=== PATIENT | female | born 1930 | race Caucasian/White ===

== ENCOUNTER 2018-07-13 19:01 | Inpatient (IN) | payer MEDICARE, BC ==
[~2018-07-13] VITALS: Ht 152.4 cm; Wt 55.5 kg
[2018-07-13 21:05] VITALS: BP 156/82; PULSE 75; TEMP 98.7
[2018-07-13] MEDS ORDERED: NORVASC 5MG5 MG/TAB PO ×2 (22:27→22:32)
[2018-07-13] MEDS ORDERED: COZAAR100 MG PO (22:34)
[2018-07-13] MEDS ORDERED: BYSTOLIC10 MG PO (22:37)
[2018-07-13] MEDS ORDERED: JANUVIA50 MG PO (22:38)
[2018-07-13] MEDS ORDERED: HCTZ 25MG TAB25 MG PO (22:39)
[2018-07-13 23:30] LABS: HEMATOCRIT 38.8 % (37.0-47.0); MEAN CELL VOLUME 89 fl (80.0-100.0); MEAN CORPUSCULAR HEMOGLOBIN 30 pg (27.0-31.0); MEAN CORPUSCULAR HGB CONC 34 g/dl (33.0-37.0); MEAN PLATELET VOLUME 10.3 fl (7.4-10.4); PLATELET COUNT 241 K/mm3 (130-400); RED BLOOD COUNT 4.38 M/mm3 (4.10-5.30); REDCELL DISTRIBUTION WIDTH-CV 12.7 % (11.5-14.5)
[2018-07-13 23:41] LABS: ALBUMIN 3.7 gm/dL (3.5-5.0); BILIRUBIN,TOTAL 0.6 mg/dL (0.0-1.0); CALCIUM 9.1 mg/dL (8.4-10.2); CREATININE, serum 0.6 mg/dL (0.52-1.25); POTASSIUM 3.5 mmol/L (3.4-5.0); TOTAL PROTEIN 6.6 gm/dL (6.4-8.2)
[2018-07-13 23:54] LABS: TROPONIN-I 18.4 ng/mL (0.000-0.034)
[2018-07-14 04:20] VITALS: BP 149/63; PULSE 65; TEMP 98.3
[2018-07-14 07:20] VITALS: BP 138/84; PULSE 61
[2018-07-14 10:55] VITALS: BP 121/69; PULSE 75; TEMP 98.2
[2018-07-14] MEDS ORDERED: LIPITOR 40MG TA40 MG PO (11:35)
[2018-07-14] MEDS ORDERED: PLAVIX 75MG TAB75 MG PO (11:35)
[2018-07-14] MEDS ORDERED: NITROSTAT0.4 MG/TAB SL (11:36)
[2018-07-14] MEDS ORDERED: ASPIRIN 81M81 MG/TA2 PO (11:37)
== END 2018-07-14 12:57 | disposition home health service (06) | DRG 282 ==
LOC: MEDICAL 19:01
PROVIDERS: Internal Medicine
DX: I21.4 Non-ST elevation (NSTEMI) myocardial infarction (principal); I25.10 Atherosclerotic heart disease of native coronary artery without angina pectoris; Z66 Do not resuscitate; I10 Essential (primary) hypertension; E78.5 Hyperlipidemia, unspecified; E11.9 Type 2 diabetes mellitus without complications; Z91.19 Patient's noncompliance with other medical treatment and regimen
CPT/HCPCS: 99223-AI